=== PATIENT | male | born 1975 | race Caucasian/White ===

== ENCOUNTER 2020-07-24 08:32 | Outpatient (CLI) | payer OTHER ==
[~2020-07-24] VITALS: Ht 185.4 cm; Wt 92.6 kg
[2020-07-24] MEDS ORDERED: LIPITOR 40MG TA40 MG PO (09:00)
[2020-07-24] MEDS ORDERED: TUMS500 MG PO (09:01)
[2020-07-24] MEDS ORDERED: MELATONIN5 M1 SL (09:01)
[2020-07-24 09:02] VITALS: BP 122/81; PULSE 70; TEMP 97.7
--- NOTE | 2020-07-24 11:00 | NUR ---
Pt assisted out to 's car by wheelchair.
--- NOTE | 2020-07-24 11:10 | NUR ---
Pt instructions reviewed with pt and , both express understanding. INT is left in place per verbal instruction of Dr Hand, as pt has stress test at Cardiology office at 1300, and IV will be used for that procedure. Site padded with 2x2 and wrapped with coban. Pt ambulates out with steady gait, escorted to elevator with .
[2020-07-24 11:12] VITALS: BP 131/86; PULSE 79
== END 2020-07-24 11:13 | disposition home or self-care (01) ==
LOC: COL.CAR 08:32
DX: I48.0 Paroxysmal atrial fibrillation (principal); E78.2 Mixed hyperlipidemia; Z82.49 Family history of ischemic heart disease and other diseases of the circulatory system; Z86.73 Personal history of transient ischemic attack (TIA), and cerebral infarction without residual deficits; G47.33 Obstructive sleep apnea (adult) (pediatric)

== ENCOUNTER 2020-08-30 09:01 | Outpatient (CLI) | payer OTHER ==
[2020-08-30] VITALS (10 sets, daily range): BP systolic 114–143; BP diastolic 79–100; PULSE 76–112; TEMP 98.4
[~2020-08-30] VITALS: Ht 185.4 cm; Wt 93.1 kg
[~2020-08-30 09:01] MED LIST: LIPITOR 40MG TA40 MG PO; MELATONIN5 M1 SL; TUMS500 MG PO
[2020-08-30] MEDS ORDERED: ASPIRIN E.C. 8181 MG PO (09:30)
[2020-08-30 09:48] LABS: PROTHROMBIN TIME 11.4 SECONDS (9.7-12.8)
[2020-08-30 09:50] LABS: HEMATOCRIT 44.9 % (42.0-52.0); HEMOGLOBIN 15.1 g/dl (13.5-18.0); MEAN CELL VOLUME 81 fl (80.0-100.0); MEAN CORPUSCULAR HEMOGLOBIN 27 pg (27.0-31.0); MEAN CORPUSCULAR HGB CONC 34 g/dl (33.0-37.0); MEAN PLATELET VOLUME 10.2 fl (7.4-10.4); PLATELET COUNT 234 K/mm3 (130-400); RED BLOOD COUNT 5.57 M/mm3 (4.20-5.60); REDCELL DISTRIBUTION WIDTH-CV 13.5 % (11.5-14.5)
[2020-08-30 09:56] LABS: CALCIUM 9.1 mg/dL (8.4-10.2); CREATININE, serum 1.12 (0.66-1.25); POTASSIUM 4.1 mmol/L (3.4-5.0)
--- NOTE | 2020-08-30 12:00 | NUR ---
Pt calls out with c/o N/V and feeling that throat is swelling. Dr. Shaffer in to evaluate pt. Uvula enlarged and easily seen. Pt states it feels like there is something in his throat and it is difficult to swallow. Meds ordered, see [facility].
--- NOTE | 2020-08-30 12:20 | NUR ---
Pt states symptoms feel like they've slightly improved. Able to speak full sentence without issue. Respirations even and unlabored. Occasionally spitting mucous, but states overall easier to swallow. VSS. remains at bedside. Call light in reach. Per Dr. Shaffer, pt will remain for additional hour of observation.
--- NOTE | 2020-08-30 13:00 | NUR ---
Pt resting quietly in bed, at bedside. Respirations even and unlabored. While sleeping, pt has been able to manage secretions.
--- NOTE | 2020-08-30 13:45 | NUR ---
VS remain stable. Pt managing saliva secretions, appearing to swallow without difficulty. He does report uvula continues to feel irritated. He and both state pt has long hx of difficulty swallowing pills because throat is so sensative. Edema to uvula is stable since last assessment by this nurse at time of solumedrol and benadryl administration. states she feels it is improved since pt's first c/o swelling. Respirations remains even and unlabored, no cough, stridor or other adventageous breath sounds noted. Pt up to restroom with steady gait & stand by assistance. He is assisted out to 's car with belongings after IV was DC'd with catheter intact. Return precautions for ED evaluation or reasons to call office related to possible allergic reaction reviewed and pt and , both express understanding.
== END 2020-08-30 13:45 | disposition home or self-care (01) ==
LOC: COL.RAD 09:01
PROVIDERS: Internal Medicine Cardiovascular Disease
DX: I48.91 Unspecified atrial fibrillation (principal)
CPT/HCPCS: J1200; J2704; J2930; J7120